=== PATIENT | female | born 1950 | race African-American/Black ===

== ENCOUNTER 2016-05-11 11:09 | Emergency (ER) | payer MEDICARE, OTHER ==
[~2016-05-11] VITALS: Ht 165.1 cm; Wt 86.2 kg
[2016-05-11 11:15] VITALS: BP 134/85
== END 2016-05-11 11:55 | disposition home or self-care (01) ==
LOC: ER 11:11
DX: J02.9 Acute pharyngitis, unspecified (principal); R09.82 Postnasal drip
CPT/HCPCS: A4606; Z7610

== ENCOUNTER 2020-02-04 15:54 | Emergency (ER) | payer MEDICARE, OTHER ==
[~2020-02-04] VITALS: Ht 165.1 cm; Wt 85.7 kg
[2020-02-04 15:58] VITALS: BP 130/65
[2020-02-04] MEDS ORDERED: ACETAMINOPHEN ES 500 MG TABLET ONE (17:07)
[2020-02-04] MEDS: ACETAMINOPHEN ES 500 MG TABLET PO ONE (17:08)
== END 2020-02-04 17:10 | disposition home or self-care (01) ==
LOC: ER 16:02
DX: L50.8 Other urticaria (principal); F41.9 Anxiety disorder, unspecified